=== PATIENT | female | born 1980 | race Two or more races ===

== ENCOUNTER 2025-10-29 15:46 | Emergency (ER) | payer BC, SELFPAY ==
[2025-10-29 16:04] VITALS: BP 149/93; PULSE 83; RESP 18; TEMP 36.8; O2SAT 98; BMI 27.5
--- NOTE | 2025-10-29 16:23 | EDNOTE_ITS ---
ED Animal Bite RME/HPI General Chief Complaint: Animal Bite Stated Complaint: DOG BITE TO LEFT LEG Time Seen by Provider: 10/29/25 16:14 Arrival date/time: 10/29/25 15:46 44-year-old female with no signal medical problems presents to the emergency department complaint of left knee pain and right leg pain after being bit by her friends dog yesterday Limitations: no limitations Related Data Previous Rx's ?Medication ?Instructions ?Recorded tramadol 50 mg tablet (Ultram) 1 - 2 tab PO Q6HR PRN P AIN #20 tabs 05/17/15 amoxicillin 875 mg-potassium 1 tab PO BID 10 days #20 tabs 10/29/25 clavulanate 125 mg tablet bacitracin 500 unit/gram topical 1 applic topical TID 7 days #28.4 10/29/25 ointment grams hydrocodone 5 mg-acetaminophen 325 1 tab PO BID PRN pa in #10 tabs 10/29/25 mg tablet ibuprofen 800 mg tablet 800 mg PO TID PRN pain #30 t abs 10/29/25 Allergies Allergy/AdvReac Type Severity Reaction Status Date / Time No Known Allergies Allergy Unknown Uncoded 10/29/25 15:49 Review of Systems Review of Systems Systems Reviewed: All systems reviewed, normal except as documented Constitutional Constitutional: Reports system reviewed and no additional complaints, except as documented, Denies fever(s) and Denies headache(s) Eyes Eyes: Reports system reviewed and no additional complaints, except as documented and Denies blurry vision ENT Ears, Nose, Mouth, and Throat: Reports system reviewed and no additional complaints, except as documented, Denies headache(s), Denies nasal congestion and Denies nasal discharge Cardiovascular Cardiovascular: Reports system reviewed and no additional complaints, except as documented, Denies chest pain and Denies dyspnea Respiratory Respiratory: Reports system reviewed and no additional complaints, except as documented, Denies chest congestion, Denies cough and Denies dyspnea Gastrointestinal Gastrointestinal: Reports system reviewed and no additional complaints, except as documented and Denies abdominal pain Integumentary/Breasts Skin/Breast: Reports system reviewed and no additional complaints, except as documented, Denies rash and Reports wounds (Superficial dog bites left knee and right lower leg erythema about the left) Neurologic Neurologic: Reports system reviewed and no additional complaints, except as documented, Reports as per HPI and Denies headache(s) Past Medical History Social History SMOKING STATUS: Never smoker ED Exam General Limitations: Present no limitations General appearance: Present alert and in no apparent distress Head Head exam: Present atraumatic Eye Eye exam: Present normal appearance, PERRL and EOMI ENT ENT exam: Present normal exam, normal oropharynx and mucous membranes moist Neck Neck exam: Present normal inspection, full ROM and trachea midline Chest Chest inspection: Present normal inspection and symmetric chest wall rise Respiratory Respiratory exam: Present normal lung sounds bilaterally Cardiovascular Cardiovascular exam: Present regular rate, normal rhythm and normal heart sounds Abdominal Exam Abdominal exam: Present soft and normal bowel sounds Extremities Exam Extremities exam: Present full ROM, tenderness, normal capillary refill and joint swelling (Mild erythema and swelling to left knee superficial dog bites) Back Exam Back exam: Present normal inspection and full ROM Neurological Exam Neurological exam: Present alert, oriented X3 and CN II-XII intact Psychiatric Psychiatric exam: Present normal affect and normal mood Skin Skin exam: Present warm, dry and other (Mild erythema and swelling to left knee superficial dog bites) Course Quality Measures none Orders Category Date Time Status TDap [Obtain Tdap Consent] X1 Care 10/29/25 16:23 Active HYDROcodone*/APAP 5/325 [[place] 5/325] Med 10/29/25 16:26 Discontinued 1 tab PO X1 ONE Lidocaine 1% Vial 20 ml [Xylocaine 1% 20 ML] Med 10/29/25 16:23 Discontinued 2.1 ml INFL X1 ONE TET,DIP/PERT AC (Adult)-Tdap [Boostrix Adult (Tdap) Med 10/29/25 16:23 Discontinued Vacc] 0.5 ml IMI .ONCE ONE cefTRIAXone [Rocephin] Med 10/29/25 16:23 Discontinued 1,000 mg IM X1 ONE Vital Signs Vital signs: Vital Signs Temperature 98.2 F 10/29/25 16:04 Pulse Rate 83 10/29/25 16:04 Respiratory Rate 18 10/29/25 16:04 Blood Pressure 149/93 H 10/29/25 16:04 Pulse Oximetry (%) 98 10/29/25 16:04 Oxygen Delivery Method Room Air 10/29/25 16:04 O2 saturation 98% on room air within normal limits Animal Bite MDM Narrative MDM Narrative:: 44-year-old female with no signal medical problems presents to the emergency department complaint of left knee pain and right leg pain after being bit by her friends dog yesterday On exam well-appearing does not appear ill or toxic no acute distress On exam patient does have mild erythema around the anterior portion of the left knee no circumferential redness patient does have Superficial dog bites Tetanus updated patient given Rocephin discharged with antibiotics and pain medication I did explain to the patient that symptoms can worsen as dog bites can get infected and should symptoms persist or worsen she needs to return for reevaluation Patient discharged home in no distress to follow-up with primary care doctor in the next 24 to 48 hours and for any worsening symptoms to return to the ER immediately Patient data External records reviewed:: [facility] previous records Clinical information provided by:: patient Social determinants that could affect healthcare access:: none Patient has the following chronic illnesses:: None How is presenting disease/condition affected by chronic disease/condition?: no chronic disease Evaluation data The following diagnostics were reviewed and interpreted by me:: other (specify) Lab and/or radiology exams considered but not ordered:: Considered not ordered Interpretation Summary: N/A Medications / Prescriptions Medications or Prescriptions considered but not ordered:: Given Medication administrations:: Medication Administration History Discontinued Medications Hydrocodone Bitart/Acetaminophen (Hydrocodone/Apap 5/325 Tablet) 1 tab PO X1 ONE Stop: 10/29/25 16:27 Last Admin: 10/29/25 17:05 Dose: 1 tab Documented By: Ceftriaxone Sodium (Ceftriaxone Sod Inj 1,000 Mg Vial) 1,000 mg IM X1 ONE Stop: 10/29/25 16:24 Last Admin: 10/29/25 17:07 Dose: 1,000 mg Documented By: Diphtheria/Tetanus/Acell Pertussis (Diphth,Pertuss(Acell),Tet Vac 0.5 Ml Syr- Adult) 0.5 ml IMi .ONCE ONE Stop: 10/29/25 16:24 Last Admin: 10/29/25 17:06 Dose: 0.5 ml Documented By: Lidocaine HCl (Lidocaine Hcl 1% 20 Ml Vial) 2.1 ml INFL X1 ONE Stop: 10/29/25 16:24 Last Admin: 10/29/25 17:07 Dose: 2.1 ml Documented By: Given Consultations Consultation(s) initiated? (list below): No Diagnosis Differential diagnosis animal bite: bite by animal, dog bite and rabies contact Most likely diagnosis given after review of the tests above:: Dog bite left leg Admission Indicated Admission indicated?: not indicated Admission Request Was there a request for admission?: No Disposition Plan Disposition Plan: Discharge Discharge Attestation Discharge Attestation: The patient and all family members were given an opportunity to ask questions and understood the discharge instructions. Discharge instructions specifically effects, indications for sooner follow up or return to the emergency department, and the expected course of current diagnosis. Patient condition: Stable Discharge Plan Plan Patient Disposition: HOME (Self Care) Discharge Disposition comment: Stable Prescriptions/Referrals Prescriptions/Med Rec: New ibuprofen 800 mg tablet 800 mg PO TID PRN (Reason: pain) Qty: 30 0RF bacitracin 500 unit/gram ointment 1 applic topical TID 7 Days Qty: 28.4 0RF amoxicillin-pot clavulanate 875-125 mg tablet 1 tab PO BID 10 Days Qty: 20 0RF hydrocodone-acetaminophen 5-325 mg tablet 1 tab PO BID MDD 10mg PRN (Reason: pain) Qty: 10 0RF No Action tramadol [Ultram] 50 MG tablet 1 - 2 tab PO Q6HR PRN (Reason: PAIN) Qty: 20 0RF Rx Instructions: FOR PAIN, NOT TO EXCEED 8 TABS IN 24 HRS Problem List Clinical Impression: Dog bite Patient/Caregiver Discharge Instructions Education Materials: ED Dog Bite Additional Instructions: Please follow up with your primary care doctor in the next 24-48hrs for any worsening symptoms return here immediately Print Language: Prydeinig Stand Alone Forms: Jeannie Award Info., Work/School Release, Patient Portal Info Letter Vaccines Vaccines Given During Stay: TDaP PA/[employer] Supervising Physician PA/[employer]CH[employer]IAN Supervising Physician: dr lora
[2025-10-29] MEDS: HYDROcodone/APAP 5/325 TABLET 1 TAB PO (17:05)
[2025-10-29] MEDS: DIPHTH,PERTUSS(ACELL),TET VAC 0.5 ML SYR- ADULT IMi (17:06)
[2025-10-29] MEDS: LIDOCAINE HCL 1% 20 ML VIAL 2.1 ML INFL (17:07)
[2025-10-29] MEDS: cefTRIAXone SOD INJ 1,000 MG VIAL 1000 MG IM (17:07)
== END 2025-10-29 18:01 | disposition home or self-care (01) ==
LOC: SERX 17:05
PROVIDERS: Emergency Provider Nurse Practitioner Primary Care
DX: S80.272A Other superficial bite of left knee, initial encounter (principal); W54.0XXA Bitten by dog, initial encounter; Z23 Encounter for immunization
CPT/HCPCS: 90471; 90715; 96372; 99282; J0696; J3490; A9270